=== PATIENT | female | born 1935 | race Caucasian/White ===

== ENCOUNTER → 2016-10-19 | Outpatient (CLI) | payer MEDICARE ==
[~2016-10-19] MED LIST: methylPREDNISolone 80 MG/ML (DEPO MEDROL) VIAL IM ONE
== END ==
LOC: PMC 10:49
PROVIDERS: ATTEND Nurse Practitioner Acute Care
DX: M48.06 Spinal stenosis, lumbar region (principal); L40.50 Arthropathic psoriasis, unspecified; Z79.82 Long term (current) use of aspirin
CPT/HCPCS: 62323; J1040